=== PATIENT | male | born 1950 | race African-American/Black ===

== ENCOUNTER → 2017-09-07 | Outpatient (CLI) | payer OTHER | LOC: RT 09:40 | PROVIDERS: ATTEND Psychiatry & Neurology Neurology | DX: R20.2 Paresthesia of skin (principal) | CPT/HCPCS: 95909 ==

== ENCOUNTER → 2017-10-18 | Outpatient (CLI) | payer OTHER ==
--- NOTE | 2017-10-18 15:37 | RAD ---
History: Right shoulder pain Study: Three views of right shoulder including AP internal and external rotation and a scapular Y-vie w Comparison: None Findings: There are mild osteophytes about the AC joint. There is no fracture. The scapula is intact. The glenohumeral joints are unremarkable. There is no abnormal soft tissue calcification. Impression: Mild AC joint osteoarthritis Reported By:
--- NOTE | 2017-10-18 15:54 | RAD ---
HISTORY: Neck and right shoulder pain, upper back pain Study: Three-view cervical spine Comparison: None Findings: Vertebral alignment is normal. There is no spondylolisthesis. There is moderate loss of disc space he ight at the C6-C7 level with associated degenerative endplate change and marginal osteophytosis. Lori inal osteophytosis is noted that other cervical levels as well. There appears to be at least mild los s of disc space height at the C7-T1 level. The posterior elements are grossly intact. No prevertebral soft tissue swelling can be identified. The odontoid appears intact. The lateral masses of C1 alig n with the body of C2. IMPRESSION: 1. Cervical spondylosis as above Reported By:
--- NOTE | 2017-10-18 16:47 | RAD ---
HISTORY: Back pain Study: Four views of the thoracic spine Comparison: None Findings: Images demonstrate 12 rib-bearing thoracic vertebral bodies. The thoracic vertebral body heights are relatively maintained. Degenerate facet changes are seen throughout the thoracic spine. There is ques tionable minimal multilevel osteophytosis as well. If symptoms persist correlation with MRI may be he lpful. IMPRESSION: 1. Degenerative changes as noted above. Reported By:
== END ==
LOC: RAD 14:09
PROVIDERS: ATTEND Psychiatry & Neurology Neurology
DX: R20.2 Paresthesia of skin (principal); M47.892 Other spondylosis, cervical region
CPT/HCPCS: 72040; 72072; 73030

== ENCOUNTER → 2017-10-27 | Outpatient (CLI) | payer OTHER ==
--- NOTE | 2017-10-27 15:49 | MRI ---
MRI thoracic spine without contrast Indication: Radiculopathy Technique: Multisequence, multiplanar MR images of the thoracic spine were obtained without IV contra st. Comparison: None Findings: Vertebral body heights, alignment and marrow signal are normal. No acute fracture, subluxat ion or suspicious osseous lesion is identified. The thoracic cord is normal in contour, caliber and s ignal. The visualized lungs are grossly clear. A left renal cyst is noted. The remaining imaged mic minor soft tissues are grossly unremarkable. The cervical spine findings are reported separately. There is a mild broad-based disc bulge at T2-T3 which effaces the anterior thecal sac. There is no si gnificant associated canal or foraminal stenosis. Mild facet arthropathy of the lower thoracic spine is also noted. Otherwise, no additional significant degenerative changes or evidence for high-grade c anal or foraminal compromise is identified within the remaining thoracic spine. Impression: Mild broad-based disc bulge at T2-T3 and facet arthropathy of the lower thoracic spine. Otherwise, essentially unremarkable MRI of the thoracic spine without evidence for high-grade canal o r foraminal compromise at any level. Reported By:
--- NOTE | 2017-10-27 16:09 | MRI ---
MRI cervical spine without contrast Indication: Cervical radiculopathy Technique: Multisequence, multiplanar MR images of the cervical spine were obtained without IV contra st. Comparison: None Findings: Straightening of the cervical spine is likely positional. Vertebral body heights, alignment and marrow signal are otherwise normal. No acute fracture, subluxation or suspicious osseous lesion is identified. The craniocervical junction and visualized cervicomedullary junction are normal. The c ervical cord is normal in contour, caliber and signal without edema or abnormal expansion. The visual ized prevertebral and paraspinal soft tissues are grossly unremarkable. C2-C3: Unremarkable C3-C4: Unremarkable C4-C5: Mild facet arthropathy and uncovertebral hypertrophy without significant stenosis. C5-C6: Mild facet arthropathy and uncovertebral hypertrophy without significant stenosis. C6-C7: There is moderate disc desiccation/narrowing, uncovertebral hypertrophy and facet arthropathy which results in moderate right greater than left neural foraminal stenosis. There is no significant canal narrowing. C7-T1: Mild disc desiccation/narrowing, uncovertebral hypertrophy and facet arthropathy results sever e left and moderate right neural foraminal stenosis. There is no significant canal narrowing. Impression: Multilevel degenerative changes, most significant at C6-C7 and C7-T1, as detailed above. Reported By:
== END | disposition home or self-care (01) | DRG 74 ==
LOC: RAD 13:03
PROVIDERS: ATTEND Psychiatry & Neurology Neurology
DX: M54.12 Radiculopathy, cervical region (principal); M51.24 Other intervertebral disc displacement, thoracic region
CPT/HCPCS: 72141; 72146

== ENCOUNTER 2020-12-26 12:51 | Observation (INO) ==
[2020-12-26] MEDS ORDERED: NS 1000 ML 500 ML IV ONE (13:23)
[2020-12-26] MEDS ORDERED: NS 500 ML IV 500 ML IV ONE (13:45)
[2020-12-26 15:20] LABS: ABG ALLEN TEST POS; ABG BASE EXCESS 1.8 mmol/L (-2.0-2.0); ABG HCO3 25.7 mmol/L (22-26)
[2020-12-26 15:27] LABS: BASOPHILS % (AUTO) 0.6 % (0.2-1.0); HEMATOCRIT 38.3 % (42.0-54.0); HEMOGLOBIN 12.6 g/dL (13.5-18.0); LYMPHOCYTES # (AUTO) 1.3 X10^3/uL (1.3-2.9); MEAN CORPUSCULAR HEMOGLOBIN 28.2 pg (27.0-34.0); MEAN CORPUSCULAR HGB CONC 32.9 g/dL (33.0-35.0); MEAN CORPUSCULAR VOLUME 85.6 fL (80.0-100.0); MEAN PLATELET VOLUME 9.7 fL (7.4-11.0); MONOCYTES # (AUTO) 0.2 x10^3/uL (0.3-0.8); MONOCYTES % (AUTO) 3.8 % (0.0-13.0); NEUTROPHILS # (AUTO) 4.5 x10^3/uL (2.2-4.8); NEUTROPHILS % (AUTO) 73.6 % (42.0-75.0); PLATELET COUNT 102 X10^3/uL (150.0-450.0); RED BLOOD COUNT 4.47 X10^6/uL (4.7-6.0); RED CELL DISTRIBUTION WIDTH 14.2 % (11.6-16.5); WHITE BLOOD COUNT 6.1 X10^3/uL (3.6-10.0)
[2020-12-26 15:40] LABS: ALANINE AMINOTRANSFERASE 31 Units/L (12-78); ALBUMIN 2.8 g/dL (3.4-5.0); ALKALINE PHOSPHATASE 86 Units/L (46-116); ASPARTATE AMINO TRANSFERASE 35 Units/L (15-37); BLOOD UREA NITROGEN 20 mg/dL (7-18); CALCIUM 7.7 mg/dL (8.5-10.1); CHLORIDE 107 mmol/L (98-107); COR CA(FOR HYPOALB) 8.7 mg/dL (8.5-10.1); CREATININE 1.58 mg/dL (0.70-1.30); SODIUM 141 mmol/L (136-145); TOTAL PROTEIN 7.4 g/dL (6.4-8.2); eGFR NON BLACK RACES 46 (>60)
--- NOTE | 2020-12-26 16:00 | RAD ---
HISTORYCOVID +STUDYCHEST, 1 VIEWCOMPARISONNone availableTECHNIQUEChest radiographic imaging, frontal projection, 1 imageFINDINGSNo cardiomegaly.Hazy airspace opacity in the inferior aspect of the right upper lobe and throughout the right lower lobe.Hazy airspace disease throughout the left lower lobe.No pleural effusion.No pneumothorax.No acute osseous abnormality.IMPRESSIONBilateral hazy airspace opacities; right greater than left, is consistent with the given history of a COVID-19 respiratory infection.Electronically signed by: Chris Garcia (Dec 26, 2020 15:58:18)
[2020-12-26] MEDS ORDERED: REMDESIVIR 200 MG in NS 250 ML IV 250 ML IV ONE (16:33)
[2020-12-26] MEDS ORDERED: REMDESIVIR IV ONE ×2 (16:36→16:40)
[2020-12-26] MEDS ORDERED: NS 1000 ML 1,000 ML ONE (16:36)
[2020-12-26] MEDS ORDERED: NS 250 ML IV 250 ML IV ONE (16:37)
[2020-12-26] MEDS ORDERED: TYLENOL 325 MG TAB PO ONE (16:49)
--- NOTE | 2020-12-26 17:16 | CT ---
CTA CHESTCLINICAL INDICATION: COVID,PROCEDURE: Non gated axial images of the chest were obtained with intravenous contrast according to pulmonary embolism protocol. MIPS were reconstructed Dose reduction techniques including Automated Exposure Control (AEC) and adjustment of mA and kV were utlized.COMPARISON:NoneFINDINGS:No evidence of a pulmonary embolism to the level of the segmental pulmonary arteries.The heart is normal in size . No pericardial effusion . Patchy bilateral ground-glass opacities are present. No suspicious mediastinal or axillary lymph nodes . No focal consolidations, pleural effusions or pneumothorax .Airways are patent . No suspicious pulmonary nodules or masses .Simple hepatic and renal cysts.No aggressive osseous lesions.IMPRESSION:1. No evidence of pulmonary embolism.2. Patchy bilateral ground-glass opacities consistent with acute, atypical infection including viral etiologies.Electronically signed by: CHERIE ROSS (Dec 26, 2020 17:14:23)
[2020-12-26 17:56] LABS: BILIRUBIN,URINE NEGATIVE (NEGATIVE); BLOOD/HEMOGLOBIN,URINE 3+ (NEGATIVE); GLUCOSE, URINE NEGATIVE (NEGATIVE); KETONES,URINE 2+ (NEGATIVE); LEUKOCYTE ESTERASE ,URINE NEGATIVE (NEGATIVE); NITRITES,URINE NEGATIVE (NEGATIVE); PROTEIN,URINE 3+ (NEGATIVE); UROBILINOGEN,URINE 1+ (NORMAL)
[2020-12-26 18:20] LABS: APPEARANCE,URINE HAZY (CLEAR); COLOR,URINE YELLOW (YELLOW)
[2020-12-26 18:22] LABS: AMORPHOUS SEDIMENT,UR 1+ /HPF (NEGATIVE); BACTERIA,URINE NEGATIVE /HPF (NEGATIVE); GRANULAR CASTS,URINE FEW /LPF (NEGATIVE); HYALINE CASTS, URINE FEW /LPF (NEGATIVE); SQUAMOUS EPITHELIAL CELL,UR RARE /HPF (NEGATIVE)
[2020-12-26] MEDS ORDERED: DECADRON TAB PO SCH (18:25)
--- NOTE | 2020-12-26 18:33 | DR.H&P ---
H&P History & Physical for Day of: H&P Date: 12/26/20 Chief Complaint Chief Complaint: Fever, chills Weakness, shortness of breath Allergies Allergies Allergy/AdvReac Type Severity Reaction Status Date / Time No Known Drug Allergies Allergy Verified 06/24/18 09:21 History of Present Illness History of Present Illness: Pt is a 70 year old male past medical history of hypertension presenting with fever, chills, weakness of breath, and shortness of breath for the past 3-4 days. Pt reports that symptoms have been progressively worsening. Pt went to [facility] this morning and was noted to have fever. He was sent to ED for outpatient IVF and labs. He was discovered to be COVID-19 positive and ordered Regeneron. Pt was then noted to be hypoxic with pulse ox around 88%. He was then admitted for further evaluation and treatment. Labs/imaging: Wbc 6.1, Hgb 12.6, Plt 102, Na 141, K 3.8, Creatinine 1.58, Plt 96, D-dimer 3.73, ABG: pH 7.45, pCO2 37, pO2 56, HCO3 25, O2 sat 90% on RA, Ferritin 434, CRP 50, TSH 0.89, UA negative, COVID-19 positive, Flu/RSV n egative, CXR: Bilateral hazy airspace opacities; right greater than left, is consistent with the given history of a COVID-19 respiratory infection. CTA chest was obtained and revealed: 1.No evidence of pulmonary embolism. 2. Patchy bilateral ground-glass opacities consistent with acute, atypical infection including viral etiologies. Will start patient on viral protocol. Order IVF NS@75ml/h, Remdesivir, IV Solumedrol 80mg q8h, Bronchodilators, Ivermectin, immune supporting supplements, supplemental O2, I/S, Respiratory therapy consult, Pneumonia protocol. Will continue to closely monitor patient and follow up labs/imaging in the morning. Past Medical History Past Medical History: Hypertension Family History Family Medical History: Hypertension Medications Home Medications: No Known Drug Allergies Allergy (Verified 06/24/18 09:21) Labs Result Diagrams: 12/26/20 15:11 12/26/20 15:11 Labs: Laboratory WBC 6.1 X10^3/uL (3.6-10.0) 12/26/20 15:11 RBC 4.47 X10^6/uL (4.7-6.0) L 12/26/20 15:11 Hgb 12.6 g/dL (13.5-18.0) L 12/26/20 15:11 Hct 38.3 % (42.0-54.0) L 12/26/20 15:11 MCV 85.6 fL (80.0-100.0) 12/26/20 15:11 MCH 28.2 pg (27.0-34.0) 12/26/20 15:11 MCHC 32.9 g/dL (33.0-35.0) L 12/26/20 15:11 RDW 14.2 % (11.6-16.5) 12/26/20 15:11 Plt Count 102 X10^3/uL (150.0-450.0) L 12/26/20 15:11 MPV 9.7 fL (7.4-11.0) 12/26/20 15:11 Neut % (Auto) 73.6 % (42.0-75.0) 12/26/20 15:11 Lymph % (Auto) 22.0 % (21.0-51.0) 12/26/20 15:11 [place] % (Auto) 3.8 % (0.0-13.0) 12/26/20 15:11 Eos % (Auto) 0.0 % (0.9-2.9) L 12/26/20 15:11 Baso % (Auto) 0.6 % (0.2-1.0) 12/26/20 15:11 Neut # (Auto) 4.5 x10^3/uL (2.2-4.8) 12/26/20 15:11 Lymph # (Auto) 1.3 X10^3/uL (1.3-2.9) 12/26/20 15:11 [place] # (Auto) 0.2 x10^3/uL (0.3-0.8) L 12/26/20 15:11 Eos # (Auto) 0.0 x10^3/uL (0.0-0.2) 12/26/20 15:11 Baso # (Auto) 0.0 X10^3/uL (0.0-0.1) 12/26/20 15:11 Absolute Nucleated RBC 0.2 /100WBC 12/26/20 15:11 D-Dimer 3.73 ug/ml (0.0-0.57) H* 12/26/20 15:11 Sample Site Lr 12/26/20 14:54 ABG pH 7.450 (7.35-7.45) 12/26/20 14:54 ABG pCO2 37.0 mmHg (35.0-45.0) 12/26/20 14:54 ABG pO2 56.0 mmHg (80.0-100.0) L 12/26/20 14:54 ABG HCO3 25.7 mmol/L (22-26) 12/26/20 14:54 ABG O2 Saturation 90.0 % (90-100) 12/26/20 14:54 ABG Base Excess 1.8 mmol/L (-2.0-2.0) 12/26/20 14:54 Warren Test Pos 12/26/20 14:54 A-a Gradient 47.0 mmHg 12/26/20 14:54 FiO2 21.0 12/26/20 14:54 Blood Gas Comments 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 12/26/20 14:54 Sodium 141 mmol/L (136-145) 12/26/20 15:11 Corrected Sodium TNP 12/26/20 15:11 Potassium 3.8 mmol/L (3.5-5.1) 12/26/20 15:11 Chloride 107 mmol/L (98-107) 12/26/20 15:11 Carbon Dioxide 26.0 mmol/L (21-32) 12/26/20 15:11 BUN 20 mg/dL (7-18) H 12/26/20 15:11 Creatinine 1.58 mg/dL (0.70-1.30) H 12/26/20 15:11 Est GFR (MDRD) Af Amer 56 (>60) L 12/26/20 15:11 Est GFR (MDRD) Non-Af 46 (>60) L 12/26/20 15:11 Glucose 96 mg/dL (65-99) 12/26/20 15:11 Calcium 7.7 mg/dL (8.5-10.1) L 12/26/20 15:11 Corrected Calcium 8.7 mg/dL (8.5-10.1) 12/26/20 15:11 Ferritin 434 ng/mL (26-388) H 12/26/20 15:11 Total Bilirubin 0.50 mg/dL (0.2-1.0) 12/26/20 15:11 AST 35 Units/L (15-37) 12/26/20 15:11 ALT 31 Units/L (12-78) 12/26/20 15:11 Alkaline Phosphatase 86 Units/L (46-116) 12/26/20 15:11 C-Reactive Protein 50.10 mg/L (0-3.0) H 12/26/20 15:11 B-Natriuretic Peptide 18.0 pg/mL (0-79) 12/26/20 15:11 Total Protein 7.4 g/dL (6.4-8.2) 12/26/20 15:11 Albumin 2.8 g/dL (3.4-5.0) L 12/26/20 15:11 Globulin 4.6 g/dL (2.5-4.5) H 12/26/20 15:11 Albumin/Globulin Ratio 0.6 Ratio (1.1-2.1) L 12/26/20 15:11 Specimen Type Random urine 12/26/20 17:36 Urine Color Yellow (YELLOW) 12/26/20 17:36 Urine Appearance Hazy (CLEAR) 12/26/20 17:36 Urine pH 5.0 (5.0 - 8.0) 12/26/20 17:36 Ur Specific [place] 1.020 (1.000-1.030) 12/26/20 17:36 Urine Protein 3+ (NEGATIVE) 12/26/20 17:36 Urine Glucose (UA) Negative (NEGATIVE) 12/26/20 17:36 Urine Ketones 2+ (NEGATIVE) 12/26/20 17:36 Urine Occult Blood 3+ (NEGATIVE) 12/26/20 17:36 Urine Nitrite Negative (NEGATIVE) 12/26/20 17:36 Urine Bilirubin Negative (NEGATIVE) 12/26/20 17:36 Urine Urobilinogen 1+ (NORMAL) 12/26/20 17:36 Ur Leukocyte Esterase Negative (NEGATIVE) 12/26/20 17:36 Urine RBC 3-5 /HPF (0-3) A 12/26/20 17:36 Urine WBC 0-2 /HPF (0-5) 12/26/20 17:36 Ur Squamous Epith Cells Rare /HPF (NEGATIVE) 12/26/20 17:36 Amorphous Sediment 1+ /HPF (NEGATIVE) 12/26/20 17:36 Urine Bacteria Negative /HPF (NEGATIVE) 12/26/20 17:36 Hyaline Casts Few /LPF (NEGATIVE) 12/26/20 17:36 Granular Casts Few /LPF (NEGATIVE) 12/26/20 17:36 Ur Culture Indicated? No/not indicated 12/26/20 17:36 SARS-CoV-2 (PCR) Positive (NEGATIVE) A 12/26/20 13:19 Influenza Type A (PCR) Negative (NEGATIVE) 12/26/20 13:19 Influenza Type B (PCR) Negative (NEGATIVE) 12/26/20 13:19 RSV (PCR) Negative (NEGATIVE) 12/26/20 13:19 Review of Systems Constitutional: Fever, Chills and Weakness Eyes: No Symptoms Reported ENT: No Symptoms Reported Respiratory: Cough and Shortness of Breath Cardiovascular: No Symptoms Reported Gastrointestinal: No Symptoms Reported Genitourinary: No Symptoms Reported Musculoskeletal: No Symptoms Reported Skin: No Symptoms Reported Neurological: No Symptoms Reported Physical Exam Vital Signs: Blood Pressure [Left Arm] 120/70 Oriented: Normal Eyes: Normal Ear: Normal Nose: Normal Throat: Normal Respiratory: Diminished Throughout Cardiovascular: Normal : Normal Auscultation: Bowel Sounds: Normal Palpation: Normal Tenderness: Normal Skin: Normal Musculoskeletal: Normal Psychiatric: Normal Mood Description: Calm and Appropriate Affect: Normal Speech Pattern: Clear and Appropriate Assessment/Plan (1) Pneumonia due to COVID-19 virus: Status: Acute Plan: Pneumonia protocol (2) DERRICK (acute kidney injury): Status: Acute Plan: IVF Review H&P Reviewed: Yes Patient was examined?: Yes
[2020-12-26] MEDS ORDERED: PHARMACY CONSULT - IVERMECTIN XX SCH (19:00)
[2020-12-26] MEDS: DUONEB 0.5 MG/3 MG (3 mL) NEB SCH (20:05)
[2020-12-26] MEDS ORDERED: SOLU-Medrol 125 MG VIAL ONE (20:58)
[2020-12-26] MEDS ORDERED: PULMICORT NEB TX 0.5 MG NEB SCH (21:00)
[2020-12-26] MEDS: ZINC SULFATE PO SCH (21:15)
[2020-12-26] MEDS: NS 1000 ML 1,000 ML IV SCH (21:15)
[2020-12-26] MEDS: ASCORBIC ACID INJ MULTI-DOSE VIAL 1,500 MG in NS 100 ML IV 100 ML IV SCH (21:15)
[2020-12-26] MEDS: SOLU-Medrol 125 MG VIAL IVP SCH (21:30)
[2020-12-26] MEDS: IVERMECTIN PO SCH (21:45)
[2020-12-26] MEDS ORDERED: ZOFRAN INJ 4 MG VIAL IVP PRN (22:25)
[2020-12-26] MEDS ORDERED: ZOFRAN INJ 4 MG VIAL ONE (22:26)
[2020-12-27] MEDS: DUONEB 0.5 MG/3 MG (3 mL) NEB SCH ×2 (00:40→05:30)
[2020-12-27] MEDS: ASCORBIC ACID INJ MULTI-DOSE VIAL 1,500 MG in NS 100 ML IV 100 ML IV SCH ×2 (03:59→08:49)
[2020-12-27] MEDS ORDERED: SOLU-Medrol 125 MG VIAL ONE (05:59)
[2020-12-27] MEDS: SOLU-Medrol 125 MG VIAL IVP SCH (06:02)
--- NOTE | 2020-12-27 06:32 | RAD ---
HISTORYcovid 19 pneumoniaSTUDYCHEST, 1 VIEWCOMPARISONOne day prior.TECHNIQUEAP view of the chestFINDINGSCardiac and mediastinal contours are within normal limits. Similar appearance of mild bilateral scattered airspace and interstitial opacities. No definite pleural effusion or pneumothorax.IMPRESSIONNo significant change.Electronically signed by: Vincent Grimes (Dec 27, 2020 06:30:20)
[2020-12-27 06:52] LABS: BASOPHILS % (AUTO) 0.2 % (0.2-1.0); HEMATOCRIT 41.5 % (42.0-54.0); HEMOGLOBIN 13.7 g/dL (13.5-18.0); LYMPHOCYTES # (AUTO) 0.8 X10^3/uL (1.3-2.9); LYMPHOCYTES % (AUTO) 10.5 % (21.0-51.0); MEAN CORPUSCULAR HEMOGLOBIN 28.3 pg (27.0-34.0); MEAN CORPUSCULAR VOLUME 85.7 fL (80.0-100.0); MEAN PLATELET VOLUME 9.7 fL (7.4-11.0); MONOCYTES # (AUTO) 0.1 x10^3/uL (0.3-0.8); MONOCYTES % (AUTO) 1.9 % (0.0-13.0); NEUTROPHILS # (AUTO) 6.5 x10^3/uL (2.2-4.8); NEUTROPHILS % (AUTO) 87.4 % (42.0-75.0); PLATELET COUNT 111 X10^3/uL (150.0-450.0); RED BLOOD COUNT 4.84 X10^6/uL (4.7-6.0); RED CELL DISTRIBUTION WIDTH 14.1 % (11.6-16.5); WHITE BLOOD COUNT 7.4 X10^3/uL (3.6-10.0)
[2020-12-27 07:14] LABS: ALBUMIN 2.8 g/dL (3.4-5.0); CALCIUM 7.7 mg/dL (8.5-10.1); CARBON DIOXIDE 22.7 mmol/L (21-32); COR CA(FOR HYPOALB) 8.7 mg/dL (8.5-10.1); CREATININE 1.59 mg/dL (0.70-1.30)
[2020-12-27] MEDS: NS 1000 ML 1,000 ML IV SCH (07:44)
[2020-12-27] MEDS ORDERED: DUONEB 0.5 MG/3 MG (3 mL) NEB ONE (08:12)
[2020-12-27 08:14] VITALS: BMI 25.1
[2020-12-27] MEDS ORDERED: IVERMECTIN ONE (08:36)
[2020-12-27] MEDS ORDERED: LOVENOX INJ 40 MG SYR SC ONE (08:37)
[2020-12-27] MEDS ORDERED: NS 250 ML IV 250 ML IV ONE (08:37)
[2020-12-27] MEDS ORDERED: REMDESIVIR IV ONE (08:37)
[2020-12-27] MEDS ORDERED: ZINC SULFATE ONE (08:37)
[2020-12-27] MEDS: IVERMECTIN PO SCH (08:47)
[2020-12-27] MEDS: ZINC SULFATE PO SCH (08:49)
[2020-12-27] MEDS ORDERED: REMDESIVIR 100 MG in NS 250 ML IV 250 ML IV SCH (09:00)
[2020-12-27] MEDS ORDERED: LOVENOX INJ 40 MG SYR SC SCH (09:00)
--- NOTE | 2020-12-27 09:16 | W.DIS.FURT ---
Summary of Discharge Discharge Summary of Date Date of Exam: 12/27/20 Admission Date Date of Admission: 12/26/20 Admission Diagnosis Hospital Course: Pt is a 70 year old male past medical history of hypertension admitted for COVID-19 pneumonia and hypoxia. Pt overnight remained afebrile, he showed no signs of dyspnea or respiratory distress. This morning he appeared comfortable. Labs/imaging: Wbc 7.4, Hgb 13.7, Plt 111, Na 141, K 3.8, Creatinine 1.59, Plt 199, COVID-19 positive, Flu/RSV negative, CTA chest was obtained due to elevated d-dimer and revealed: 1.No evidence of pulmonary embolism. 2. Patchy bilateral ground-glass opacities consistent with acute, atypical infection including viral etiologies. Pt was on viral protocol. IVF NS@75ml/h, Remdesivir, IV Solumedrol 80mg q8h, Bronchodilators, Ivermectin, immune supporting supplements, supplemental O2, I/S. CXR this morning Similar appearance of mild bilateral scattered airspace and interstitial opacities. Pt requesting to be discharge, he is hemodynamically stable. Ambulatory pulse ox down to 88%, will dischage with home oxygen requirement of 2L nasal cannula and nebulizer. Rx medrol dose pack. He will receive outpatient Remdesivir to complete treatment course. Instructed to follow up with pcp in 1 week. Return to hospital precautions discussed. Pt stable on discharge. Vital Signs: Vital Signs (72 hours) 12/25/20 21:18 12/26/20 20:00 12/26/20 20:05 Temperature 98.8 F Pulse Rate 90 Pulse Rate [Left Brachial] 87 Respiratory Rate 20 Blood Pressure [Left Arm] 120/70 124/70 O2 Sat by Pulse Oximetry 95 94 L 12/27/20 00:00 12/27/20 00:40 12/27/20 04:00 Temperature 99 F 98.8 F Pulse Rate 86 Pulse Rate [Left Brachial] 100 H 87 Respiratory Rate 20 18 Blood Pressure [Left Arm] 131/72 126/69 O2 Sat by Pulse Oximetry 97 97 97 12/27/20 05:30 12/27/20 08:40 Temperature Pulse Rate 82 92 H Pulse Rate [Left Brachial] Respiratory Rate Blood Pressure [Left Arm] O2 Sat by Pulse Oximetry 96 97 Labs: Laboratory Last Values WBC 7.4 X10^3/uL (3.6-10.0) 12/27/20 06:32 RBC 4.84 X10^6/uL (4.7-6.0) 12/27/20 06:32 Hgb 13.7 g/dL (13.5-18.0) 12/27/20 06:32 Hct 41.5 % (42.0-54.0) L 12/27/20 06:32 MCV 85.7 fL (80.0-100.0) 12/27/20 06:32 MCH 28.3 pg (27.0-34.0) 12/27/20 06:32 MCHC 33.0 g/dL (33.0-35.0) 12/27/20 06:32 RDW 14.1 % (11.6-16.5) 12/27/20 06:32 Plt Count 111 X10^3/uL (150.0-450.0) L 12/27/20 06:32 MPV 9.7 fL (7.4-11.0) 12/27/20 06:32 Neut % (Auto) 87.4 % (42.0-75.0) H 12/27/20 06:32 Lymph % (Auto) 10.5 % (21.0-51.0) L 12/27/20 06:32 [place] % (Auto) 1.9 % (0.0-13.0) 12/27/20 06:32 Eos % (Auto) 0.0 % (0.9-2.9) L 12/27/20 06:32 Baso % (Auto) 0.2 % (0.2-1.0) 12/27/20 06:32 Neut # (Auto) 6.5 x10^3/uL (2.2-4.8) H 12/27/20 06:32 Lymph # (Auto) 0.8 X10^3/uL (1.3-2.9) L 12/27/20 06:32 [place] # (Auto) 0.1 x10^3/uL (0.3-0.8) L 12/27/20 06:32 Eos # (Auto) 0.0 x10^3/uL (0.0-0.2) 12/27/20 06:32 Baso # (Auto) 0.0 X10^3/uL (0.0-0.1) 12/27/20 06:32 Absolute Nucleated RBC 0.1 /100WBC 12/27/20 06:32 D-Dimer 3.73 ug/ml (0.0-0.57) H* 12/26/20 15:11 Sample Site Lr 12/26/20 14:54 ABG pH 7.450 (7.35-7.45) 12/26/20 14:54 ABG pCO2 37.0 mmHg (35.0-45.0) 12/26/20 14:54 ABG pO2 56.0 mmHg (80.0-100.0) L 12/26/20 14:54 ABG HCO3 25.7 mmol/L (22-26) 12/26/20 14:54 ABG O2 Saturation 90.0 % (90-100) 12/26/20 14:54 ABG Base Excess 1.8 mmol/L (-2.0-2.0) 12/26/20 14:54 Warren Test Pos 12/26/20 14:54 A-a Gradient 47.0 mmHg 12/26/20 14:54 FiO2 21.0 12/26/20 14:54 Blood Gas Comments 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 12/26/20 14:54 Sodium 141 mmol/L (136-145) 12/27/20 06:32 Corrected Sodium 143 mmol/L (136-145) 12/27/20 06:32 Potassium 3.8 mmol/L (3.5-5.1) 12/27/20 06:32 Chloride 106 mmol/L (98-107) 12/27/20 06:32 Carbon Dioxide 22.7 mmol/L (21-32) 12/27/20 06:32 BUN 23 mg/dL (7-18) H 12/27/20 06:32 Creatinine 1.59 mg/dL (0.70-1.30) H 12/27/20 06:32 Est GFR (MDRD) Af Amer 56 (>60) L 12/27/20 06:32 Est GFR (MDRD) Non-Af 46 (>60) L 12/27/20 06:32 Glucose 199 mg/dL (65-99) H 12/27/20 06:32 Calcium 7.7 mg/dL (8.5-10.1) L 12/27/20 06:32 Corrected Calcium 8.7 mg/dL (8.5-10.1) 12/27/20 06:32 Ferritin 434 ng/mL (26-388) H 12/26/20 15:11 Total Bilirubin 0.40 mg/dL (0.2-1.0) 12/27/20 06:32 AST 41 Units/L (15-37) H 12/27/20 06:32 ALT 33 Units/L (12-78) 12/27/20 06:32 Alkaline Phosphatase 103 Units/L (46-116) 12/27/20 06:32 C-Reactive Protein 85.10 mg/L (0-3.0) H 12/27/20 06:32 B-Natriuretic Peptide 18.0 pg/mL (0-79) 12/26/20 15:11 Total Protein 8.0 g/dL (6.4-8.2) 12/27/20 06:32 Albumin 2.8 g/dL (3.4-5.0) L 12/27/20 06:32 Globulin 5.2 g/dL (2.5-4.5) H 12/27/20 06:32 Albumin/Globulin Ratio 0.5 Ratio (1.1-2.1) L 12/27/20 06:32 Specimen Type Random urine 12/26/20 17:36 Urine Color Yellow (YELLOW) 12/26/20 17:36 Urine Appearance Hazy (CLEAR) 12/26/20 17:36 Urine pH 5.0 (5.0 - 8.0) 12/26/20 17:36 Ur Specific [place] 1.020 (1.000-1.030) 12/26/20 17:36 Urine Protein 3+ (NEGATIVE) 12/26/20 17:36 Urine Glucose (UA) Negative (NEGATIVE) 12/26/20 17:36 Urine Ketones 2+ (NEGATIVE) 12/26/20 17:36 Urine Occult Blood 3+ (NEGATIVE) 12/26/20 17:36 Urine Nitrite Negative (NEGATIVE) 12/26/20 17:36 Urine Bilirubin Negative (NEGATIVE) 12/26/20 17:36 Urine Urobilinogen 1+ (NORMAL) 12/26/20 17:36 Ur Leukocyte Esterase Negative (NEGATIVE) 12/26/20 17:36 Urine RBC 3-5 /HPF (0-3) A 12/26/20 17:36 Urine WBC 0-2 /HPF (0-5) 12/26/20 17:36 Ur Squamous Epith Cells Rare /HPF (NEGATIVE) 12/26/20 17:36 Amorphous Sediment 1+ /HPF (NEGATIVE) 12/26/20 17:36 Urine Bacteria Negative /HPF (NEGATIVE) 12/26/20 17:36 Hyaline Casts Few /LPF (NEGATIVE) 12/26/20 17:36 Granular Casts Few /LPF (NEGATIVE) 12/26/20 17:36 Ur Culture Indicated? No/not indicated 12/26/20 17:36 SARS-CoV-2 (PCR) Positive (NEGATIVE) A 12/26/20 13:19 Influenza Type A (PCR) Negative (NEGATIVE) 12/26/20 13:19 Influenza Type B (PCR) Negative (NEGATIVE) 12/26/20 13:19 RSV (PCR) Negative (NEGATIVE) 12/26/20 13:19 Reason For Visit: ELEVATED D DIMER, COVID POSITIVE Discharge Date Discharge Date: 12/27/20 Discharge Diagnosis All Active Problems (Updated 12/26/20 @ 19:05 by Oh Mcginnis) DERRICK (acute kidney injury) (Acute) Pneumonia due to COVID-19 virus (Acute) CKD (chronic kidney disease) stage 3, GFR 30-59 ml/min (Acute) Fatigue (Acute) Plan of Treatment: Continue with present treatment and follow up plan. Pt is to keep follow up appointment as instructed and take medications as ordered. Discharge Medications Discharge Medications: No Known Drug Allergies Allergy (Verified 06/24/18 09:21) New Prescriptions methylprednisolone [Medrol (Hugh)] See Rx Instructions .ROUTE .COMPLEX #21 ea 12/27/20 [Rx] Follow up and Referral Follow Up: 1 Week Discharge Disposition Assessment: Stable no acute distress noted at time of discharge. Discharge Disposition: Home Discharge Condition: Stable Discharge Plan Discharge Plan Hospital Course: Pt is a 70 year old male past medical history of hypertension admitted for COVID-19 pneumonia and hypoxia. Pt overnight remained afebrile, he showed no signs of dyspnea or respiratory distress. This morning he appeared comfortable. Labs/imaging: Wbc 7.4, Hgb 13.7, Plt 111, Na 141, K 3.8, Creatinine 1.59, Plt 199, COVID-19 positive, Flu/RSV negative, CTA chest was obtained due to elevated d-dimer and revealed: 1.No evidence of pulmonary embolism. 2. Patchy bilateral ground-glass opacities consistent with acute, atypical infection including viral etiologies. Pt was on viral protocol. IVF NS@75ml/h, Remdesivir, IV Solumedrol 80mg q8h, Bronchodilators, Ivermectin, immune supporting supplements, supplemental O2, I/S. CXR this morning Similar appearance of mild bilateral scattered airspace and interstitial opacities. Pt requesting to be discharge, he is hemodynamically stable. Ambulatory pulse ox down to 88%, will dischage with home oxygen requirement of 2L nasal cannula and nebulizer. Rx medrol dose pack. He will receive outpatient Remdesivir to complete treatment course. Instructed to follow up with pcp in 1 week. Return to hospital precautions discussed. Pt stable on discharge. Patient Disposition: HOME, SELF-CARE Condition: Stable Health Concerns: Post Hospitalization: new medications and changes needed to prevent readmission or further decline. Pt educated and given instructions on all concerns. Care Plan Goals: Problem: Respiratory Complications Goal: Improved Uncomplicated Respiratory Status Instructions: Follow provided instructions. Follow up with primary physician as directed. Contact primary care physician or report to the closest Emergency Room if condition worsens. Plan of Treatment: Continue with present treatment and follow up plan. Pt is to keep follow up appointment as instructed and take medications as ordered. Assessment: Stable no acute distress noted at time of discharge. Prescriptions: New methylprednisolone [Medrol (Hugh)] 4 mg tablets,dose pack See Rx Instructions .ROUTE .COMPLEX Qty: 21 RF: 0 albuterol sulfate 1.25 mg/3 mL solution for nebulization 1.25 mg inhalation QID PRNQty: 90 RF: 0 Continued loratadine [Claritin] 10 mg Tablet 10 mg PO DAILY RF: 0 amlodipine-benazepril 10-40 mg Capsule 1 cap PO QDAY RF: 0 baclofen 5 mg Tablet 5 mg PO QHS RF: 0 Orders to Discharge Patient Discharge Orders: Discharge (Routine); Ordered 12/27/20 Ordered By: Oh Mcginnis Follow ups/Referrals Follow ups/Referrals: Remdesivir outpatient [Other] - 12/28/20 9:00 am (Come to the ER daily for IV infusion times 3 day. 12/28/20@9:00am, 12/29/20@9:00am, last dose 12/30/20@9am.) JULIA JACK [Primary Care Provider] - 12/31/20 11:30 am Instructions Instructions: Incentive Spirometer, Fatigue, Viral Respiratory Infection, [id number], Home Oxygen Use, Adult, Hand Washing, [id number]-[id number], Upper Respiratory Infection, Adult, Deuk-nj-[id number], Hypoxia, Droplet Precautions, Evoc-cs-[id number], Contact Precautions, Qcwu-he-[id number], How to Use a Nebulizer, Adult, Hypertension, [id number] Activity Restrictions/Additional Instructions: Quarantine at home for 10 days. Last day of quarantine 01/06/21. Follow CDC guidelines hand washing, social distance and wear mask. Contact MD with any concerns. Wear oxygen at 2 liters per minute. Take medications as directed. Return to the ER for IV infusions daily times 3 days. Stand Alone Forms: Excuse From Work or School, Precautions for COVID19, Patient Portal, Social Distancing
[2020-12-27 10:58] VITALS: BP 148/73
[2020-12-27] MEDS ORDERED: SOLU-Medrol 40 MG VIAL IVP SCH (14:00)
[2020-12-28] MEDS ORDERED: VITAMIN D3 125 mcg (5,000 UNITS) PO SCH (09:00)
== END 2020-12-27 12:47 | disposition home or self-care (01) ==
LOC: ER 12:51 → OBS 12:51
PROVIDERS: ADMIT Family Medicine; ATTEND Nurse Practitioner Family
DX: R79.1 Abnormal coagulation profile; R79.82 Elevated C-reactive protein (CRP); N17.8 Other acute kidney failure; J12.82 Pneumonia due to coronavirus disease 2019; R79.89 Other specified abnormal findings of blood chemistry; E86.0 Dehydration; U07.1 COVID-19; R06.02 Shortness of breath